=== PATIENT | male | born 2000 | race Caucasian/White ===

== ENCOUNTER 2019-01-24 18:37 | Emergency (ER) | payer MEDICAID ==
[~2019-01-24] VITALS: Ht 165.1 cm; Wt 49.9 kg
[2019-01-24 18:43] VITALS: BP_SYST 126
--- NOTE | 2019-01-24 19:44 | NUR ---
Pt placed to ER bed 01. Pt sustained a puncture wound to palmar aspect of right thumb from a broken drill bit 1 hour [employer]. No active bleeding at this time. Pt able to move thumb without difficulty, cap refil < 3 sec to nail bed.
--- NOTE | 2019-01-24 19:50 | NUR ---
Piedad Blanchard, [employer] at bedside.
[2019-01-24] MEDS ORDERED: IBUPROFEN 600 MG TABLET PO ONE (20:00)
[2019-01-24] MEDS ORDERED: DIPH-TET-PERTUS Vaccine 0.5 ML VIAL (ADACEL) I.M. ONE (20:00)
--- NOTE | 2019-01-24 20:15 | NUR ---
Pt to x-ray.
--- NOTE | 2019-01-24 20:25 | NUR ---
Pt returns from x-ray
[2019-01-24 21:18] VITALS: BP_SYST 110
--- NOTE | 2019-01-24 21:18 | NUR ---
Patient given written and verbal discharge instructions and verbalizes understanding. ER MD discussed with patient the results and treatment provided. Patient in stable condition. ID arm band removed. Rx of Keflex and Motrin given. Patient educated on pain management and to follow up with PMD. Pain Scale 2/10. Opportunity for questions provided and answered. Medication side effect fact sheet provided.
== END 2019-01-24 21:18 | disposition home or self-care (01) ==
LOC: SED 18:37
DX: S61.431A Puncture wound without foreign body of right hand, initial encounter (principal); W29.8XXA Contact with other powered hand tools and household machinery, initial encounter; Y93.89 Activity, other specified; Y92.89 Other specified places as the place of occurrence of the external cause; Y99.8 Other external cause status
CPT/HCPCS: 90715; 99283